=== PATIENT | female | born 1935 | race Caucasian/White ===

== ENCOUNTER → 2017-02-12 | Outpatient (CLI) | payer MEDICARE, BC ==
[~2017-02-12] MED LIST: CRESTOR5 MG PO; FOSAMAX 70MG TA70 MG PO; RT ADVAIR 228 DISKUS IH; SYNTHROID0.05 MG/TA PO; ULTRAM 50MG TAB50 MG PO; ZOCOR 20MG20 MG PO
== END ==
LOC: MC.RAD 08:57
DX: Z12.31 Encounter for screening mammogram for malignant neoplasm of breast (principal)

== ENCOUNTER 2017-03-25 18:38 | Emergency (ER) | payer MEDICARE, BC ==
[~2017-03-25] VITALS: Ht 162.6 cm; Wt 67.3 kg
[2017-03-25 18:42] VITALS: TEMP 98.3
[2017-03-25 19:52] VITALS: BP 142/57; PULSE 82
== END 2017-03-25 19:46 | disposition home or self-care (01) ==
LOC: COL.ER 18:38
DX: S09.90XA Unspecified injury of head, initial encounter (principal); S00.83XA Contusion of other part of head, initial encounter; E78.5 Hyperlipidemia, unspecified; E03.9 Hypothyroidism, unspecified; W01.0XXA Fall on same level from slipping, tripping and stumbling without subsequent striking against object, initial encounter; Y92.009 Unspecified place in unspecified non-institutional (private) residence as the place of occurrence of the external cause

== ENCOUNTER → 2018-01-28 | Outpatient (CLI) | payer MEDICARE, BC ==
[2018-01-28 13:25] LABS: BASO # 0.1 (0.0-0.2); BASO % 0.8 % (0.0-2.0); EOS # 0.1 (0.0-0.7); EOS % 1.9 % (0-4.0); GRAN # 4.2 (1.4-6.5); GRAN % 57.3 % (42.2-75.2); HEMOGLOBIN 11.9 g/dl (12.5-16.0); LYMPH # 2.2 (1.2-3.4); MEAN CELL VOLUME 93 fl (80.0-100.0); MEAN CORPUSCULAR HEMOGLOBIN 31 pg (27.0-31.0); MEAN CORPUSCULAR HGB CONC 33 g/dl (33.0-37.0); MONO # 0.7 (0.1-0.6); MONO % 9.9 % (1.7-9.3); PLATELET COUNT 289 K/mm3 (130-400); RED BLOOD COUNT 3.89 M/mm3 (4.10-5.30); REDCELL DISTRIBUTION WIDTH-CV 13.2 % (11.5-14.5)
[2018-01-28 13:49] LABS: ERYTHROCYTE SEDIMENTATION RATE 24 mm/hr (0-30); HEMATOCRIT 36.2 % (37.0-47.0)
== END ==
LOC: ZCOL.LAB 13:12
PROVIDERS: Internal Medicine
DX: M79.89 Other specified soft tissue disorders (principal); M79.661 Pain in right lower leg

== ENCOUNTER → 2018-01-28 | Outpatient (CLI) | payer MEDICARE, BC | LOC: COL.VAS 14:38 | DX: M79.89 Other specified soft tissue disorders (principal); R79.89 Other specified abnormal findings of blood chemistry ==

== ENCOUNTER → 2018-02-15 | Outpatient (CLI) | payer MEDICARE, BC | LOC: MC.RAD 09:13 | DX: Z12.31 Encounter for screening mammogram for malignant neoplasm of breast (principal) ==

== ENCOUNTER → 2019-02-18 | Outpatient (CLI) | payer MEDICARE, BC | LOC: MC.RAD 09:12 | DX: Z12.31 Encounter for screening mammogram for malignant neoplasm of breast (principal) ==

== ENCOUNTER → 2020-02-23 | Outpatient (CLI) | payer MEDICARE, BC | LOC: MC.RAD 09:37 | DX: Z12.31 Encounter for screening mammogram for malignant neoplasm of breast (principal) ==

== ENCOUNTER → 2021-03-14 | Outpatient (CLI) | payer MEDICARE, BC | LOC: MC.RAD 07:46 | DX: Z12.31 Encounter for screening mammogram for malignant neoplasm of breast (principal) ==

== ENCOUNTER → 2022-05-23 | Outpatient (REF) | payer MEDICARE, BC ==
[2022-05-23 12:57] LABS: BASO # 0.1 K/mm3 (0.0-0.2); BASO % 0.8 % (0.0-2.0); EOS # 0.1 K/mm3 (0.0-0.7); EOS % 1.4 % (0.0-4.0); GRAN # 6.3 K/mm3 (1.4-6.5); HEMOGLOBIN 11.5 g/dl (12.5-16.0); LYMPH # 1.8 K/mm3 (1.2-3.4); LYMPH % 19.9 % (20.0-51.0); MEAN CELL VOLUME 93 fl (80.0-100.0); MEAN CORPUSCULAR HEMOGLOBIN 31 pg (27-31); MEAN CORPUSCULAR HGB CONC 33 g/dl (33.0-37.0); MEAN PLATELET VOLUME 9.3 fl (7.4-10.4); MONO # 0.7 K/mm3 (0.1-0.6); PLATELET COUNT 366 K/mm3 (130-400); RED BLOOD COUNT 3.69 M/mm3 (4.10-5.30); REDCELL DISTRIBUTION WIDTH-CV 12.8 % (11.5-14.5)
[2022-05-23 12:58] LABS: HEMATOCRIT 34.4 % (37.0-47.0)
[2022-05-23 13:12] LABS: ALBUMIN 3.2 gm/dL (3.4-4.8); BILIRUBIN,TOTAL 0.3 mg/dL (0.2-1.2); CALCIUM 8.4 mg/dL (8.4-10.2); CREATININE, serum 0.8 mg/dL (0.57-1.11); POTASSIUM 4.2 mmol/L (3.5-4.5); TOTAL PROTEIN 6.2 gm/dL (6.2-8.1)
== END ==
LOC: ZCOL.LAB 08:00
PROVIDERS: Internal Medicine
DX: R11.2 Nausea with vomiting, unspecified (principal)

== ENCOUNTER 2023-09-02 14:21 | Emergency (ER) | payer MEDICARE, BC ==
[~2023-09-02] VITALS: Ht 160 cm; Wt 52.3 kg
[2023-09-02 14:27] VITALS: TEMP 98.1
--- NOTE | 2023-09-02 15:11 | NUR ---
garnett room worker received information on an unresponsive female from independent living nearby. ELADIA confirmed from EMS she was at [facility]. garnett room worker called Rema at [facility] who provided pt's name. She reports pt is in [place], and her , Sarwat is in long-term care there. She was not sure on his ability to make decisions and be NOK. Rema reports she will call Dr. Vance's office for any DNR or DPOA-HC paperwork to be faxed directly to the ER. ELADIA informed VICKIE Kendall of the above information as it was coming in. ELADIA attempted to call the number on file for Sarwat x3 with no success [phone]. ELADIA notes VICKIE Bowers received a call from a son, Marco Antonio Jacob [phone]. ELADIA called son, Marco Antonio Jacob and inquired about his knowledge of pt being here. Marco Antonio states he lives in [place] and has a sister, Supriya who lives in [place] and could be here tomorrow. He reports that pt usually has no issues with mobility and has no DME. He states he is not aware of any mental diagnoses and she is "usually mentally okay." Marco Antonio stated he would like an update and ELADIA advised he should call back to the ER in a few as results and work up is still pending. Marco Antonio verbalized understanding. He is not sure who is on the DPOA-HC and states he would be "second to call" after Sarwat. ELADIA advised she reached out and got no response. Marco Antonio did not mention Supriya as a person to contact. ELADIA spoke with Rema at [facility] who will be looking for updates once those are able to come in.
[2023-09-02 15:13] LABS: BASO # 0.1 K/mm3 (0.0-0.2); BASO % 0.8 % (0.0-2.0); EOS # 0.1 K/mm3 (0.0-0.7); EOS % 0.8 % (0.0-4.0); GRAN # 5.5 K/mm3 (1.4-6.5); GRAN % 64.5 % (42.2-75.2); HEMOGLOBIN 12.7 g/dl (12.5-16.0); MEAN CELL VOLUME 91 fl (80.0-100.0); MEAN CORPUSCULAR HEMOGLOBIN 31 pg (27-31); MEAN CORPUSCULAR HGB CONC 34 g/dl (33.0-37.0); MEAN PLATELET VOLUME 9.4 fl (7.4-10.4); MONO # 0.9 K/mm3 (0.1-0.6); MONO % 10.7 % (1.7-9.3); PLATELET COUNT 278 K/mm3 (130-400); RED BLOOD COUNT 4.09 M/mm3 (4.10-5.30); REDCELL DISTRIBUTION WIDTH-CV 13.2 % (11.5-14.5)
[2023-09-02 15:28] LABS: ALBUMIN 3.7 g/dL (3.4-4.8); BILIRUBIN,TOTAL 0.4 mg/dL (0.2-1.2); CALCIUM 9.4 mg/dL (8.4-10.2); CREATININE, serum 0.87 mg/dL (0.57-1.11); POTASSIUM 4.5 mEq/L (3.5-4.5); TOTAL PROTEIN 7.2 g/dl (6.2-8.1)
[2023-09-02] MEDS ORDERED: LORazepam 2 MG/ML 1 ML VIAL IV ONE (15:30)
[2023-09-02 15:34] LABS: TROPONIN-I 0.02 ng/mL (0.00-0.033)
[2023-09-02] MEDS ORDERED: levETIRAcetam 100 ML IV ONE (16:45)
[2023-09-02] MEDS ORDERED: HONEY BEARS MU1 EACH PO (19:04)
[2023-09-02] MEDS ORDERED: ZOLOFT 50MG50 MG PO (19:04)
[2023-09-02] MEDS ORDERED: SYNTHROID0.088 MG/T PO (19:05)
[2023-09-02] MEDS ORDERED: MIRTAZAPINE7.5 MG PO (19:05)
[2023-09-02] MEDS ORDERED: MELATONIN5 M1 PO (19:07)
[2023-09-02 20:14] VITALS: BP 111/54; PULSE 92
== END 2023-09-02 20:20 | disposition short-term general hospital (02) ==
LOC: COL.ER 14:21
PROVIDERS: Emergency Medicine
DX: I62.00 Nontraumatic subdural hemorrhage, unspecified (principal)
CPT/HCPCS: J1953; J2060

== ENCOUNTER 2023-09-06 08:39 | Emergency (ER) | payer MEDICARE, BC ==
[~2023-09-06 08:39] MED LIST changes: +HONEY BEARS MU1 EACH PO; +MELATONIN5 M1 PO; +MIRTAZAPINE7.5 MG PO; +SYNTHROID0.088 MG/T PO; +ZOLOFT 50MG50 MG PO
[2023-09-06 08:54] VITALS: TEMP 98.8
[2023-09-06 09:06] LABS: COLLECTION METHOD CATHETER
[2023-09-06] MEDS ORDERED: NS 1,000 ML IV ONE (09:15)
[2023-09-06 09:22] LABS: PH 5.5 (5.0-8.5); URINE APPEARANCE CLEAR (CLEAR/HAZY); URINE BLOOD NEGATIVE (NEGATIVE); URINE COLOR YELLOW (YELLOW); URINE GLUCOSE NEGATIVE (NEGATIVE); URINE KETONE NEGATIVE (NEGATIVE); URINE NITRATE NEGATIVE (NEGATIVE); URINE PROTEIN(semi-quant) NEGATIVE (NEGATIVE); URINE UROBILINOGEN 0.2 E.U/dL (0.2-1.0)
[2023-09-06 09:41] LABS: BASO # 0.1 K/mm3 (0.0-0.2); EOS # 0.2 K/mm3 (0.0-0.7); EOS % 2.4 % (0.0-4.0); GRAN # 4.3 K/mm3 (1.4-6.5); GRAN % 59.2 % (42.2-75.2); HEMOGLOBIN 12.9 g/dl (12.5-16.0); LYMPH # 1.9 K/mm3 (1.2-3.4); LYMPH % 26.8 % (20.0-51.0); MEAN CELL VOLUME 92 fl (80.0-100.0); MEAN CORPUSCULAR HEMOGLOBIN 31 pg (27-31); MEAN CORPUSCULAR HGB CONC 34 g/dl (33.0-37.0); MEAN PLATELET VOLUME 9.4 fl (7.4-10.4); MONO # 0.7 K/mm3 (0.1-0.6); MONO % 10.3 % (1.7-9.3); PLATELET COUNT 294 K/mm3 (130-400); RED BLOOD COUNT 4.14 M/mm3 (4.10-5.30); REDCELL DISTRIBUTION WIDTH-CV 13.3 % (11.5-14.5)
[2023-09-06 10:09] LABS: ALBUMIN 3.4 g/dL (3.4-4.8); BILIRUBIN,TOTAL 0.3 mg/dL (0.2-1.2); CALCIUM 9.6 mg/dL (8.4-10.2); CREATININE, serum 0.85 mg/dL (0.57-1.11); POTASSIUM 4.7 mEq/L (3.5-4.5); TOTAL PROTEIN 6.9 g/dl (6.2-8.1)
--- NOTE | 2023-09-06 10:37 | NUR ---
Chief Deputy received call from nurse Kendall in ER stating that patient has readmitted to ED for second time in one week with same admitting symptoms as previous ED admission. Enoch stating that they are wanting patient referred to geripsych. Chart reviewed. ELADIA Box saw patient at previous ED admission and discussed patient with patient's son. Patient resides at [facility] and is normally independent with activites. Patient's is in LTC at [facility]. Per RN today, patient's daughter is staying with patient at this time, and patient's son and brother are local and very supportive of patient. There are currently no notes or assessment in chart for today's visit. ELADIA attempted to call [facility] with no response. ELADIA called nurse Kendall and informed her that patient is not experiencing any psychosis or violent behaviors that would qualify her for geripsych placement. ELADIA suggested they contact [facility] for evaluation and if cleared have patient return to Independent living with family supervision and follow up with facility SW and PCP tomorrow.
[2023-09-06 11:24] LABS: C-REACTIVE PROTEIN 0.8 mg/dL (0.00-0.50)
[2023-09-06 16:21] VITALS: BP 154/72; PULSE 78
== END 2023-09-06 16:41 | disposition home or self-care (01) ==
LOC: COL.ER 08:39
PROVIDERS: Emergency Medicine
DX: R41.82 Altered mental status, unspecified (principal); F32.A Depression, unspecified; Z79.899 Other long term (current) drug therapy
CPT/HCPCS: J7030

== ENCOUNTER 2023-12-02 10:51 | Emergency (ER) | payer MEDICARE, BC ==
[~2023-12-02] VITALS: Ht 165.1 cm; Wt 58.2 kg
[2023-12-02 11:12] VITALS: TEMP 98
[2023-12-02 13:56] VITALS: BP 161/77; PULSE 71
== END 2023-12-02 13:56 | disposition home or self-care (01) ==
LOC: COL.ER 10:51
DX: S01.01XA Laceration without foreign body of scalp, initial encounter (principal); I82.409 Acute embolism and thrombosis of unspecified deep veins of unspecified lower extremity; Z79.01 Long term (current) use of anticoagulants; W18.30XA Fall on same level, unspecified, initial encounter; W22.8XXA Striking against or struck by other objects, initial encounter